=== PATIENT | male | born 1945 | race Caucasian/White ===

== ENCOUNTER 2017-11-21 21:00 | Inpatient (IN) | payer OTHER ==
[~2017-11-21] VITALS: Ht 180.3 cm; Wt 98.5 kg
[~2017-11-21 21:00] MED LIST: ASPIRIN81 M2 PO; ESCITALOPRAM OX10 MG PO; FLOMAX0.4 MG PO; PERCOCET 5/31 TABLET PO; ZOFRAN ODT4 MG PO; [UNRECOGNIZED DRUG - REMARK]
[2017-11-22 21:00] VITALS: BP 123/62
[2017-11-22 23:21] VITALS: BP 123/69
[2017-11-23 03:36] VITALS: BP 119/59
[2017-11-23 06:45] LABS: BASOPHIL (%) 0.2 % (0-1); EOSINOPHIL (%) 0 % (0-5); HEMATOCRIT 36.1 % (38.0-50.0); HEMOGLOBIN 11.4 G/DL (12.5-16.6); IMMATURE GRANULOCYTE (%) 0.5 % (0.0-0.7); LYMPHOCYTE COUNT 0.8 K/uL (1.0-2.8); MCH 26.8 PG (29.0-34.0); MCHC 31.6 G/DL (30.0-36.0); MCV 84.7 FL (86-99); MONOCYTE (%) 5.3 % (3-12); MONOCYTE COUNT 0.7 K/uL (0-0.8); NEUTROPHIL COUNT 11.7 K/uL (1.8-6.4); PLATELET COUNT 222 K/uL (156-360); RBC DIS.WIDTH-CV 15.5 % (11.8-14.6); RBC DIS.WIDTH-SD 47.8 % (39-53); RED BLOOD COUNT 4.26 M/uL (4.00-5.50); WHITE BLOOD COUNT 13.3 K/uL (4.1-10.2)
[2017-11-23 07:09] LABS: ALBUMIN 3.7 G/DL (3.2-4.8); ALKALINE PHOSPHATASE 47 IU/L (3-129); ALT (GPT) 14 IU/L (3-49); AST (GOT) 19 IU/L (2-34); CHLORIDE 105 MEQ/L (99-109); CREATININE 1.3 MG/DL (0.6-1.3); GFR ESTIMATE (CALCULATED) 58 mL/min/ (58.99-99999); GLUCOSE 138 mg/dL (70-99); PHOSPHORUS 2.5 mg/dL (2.5-4.9); POTASSIUM 4.3 MEQ/L (3.7-5.4); SODIUM 140 MEQ/L (136-147); TOTAL BILIRUBIN 0.6 MG/DL (0.0-1.0); UREA NITROGEN (BUN) 13 mg/dL (9-23)
[2017-11-23 07:12] LABS: TOTAL PROTEIN 5.6 G/DL (6.4-8.3)
[2017-11-23 07:29] VITALS: BP 101/55
[2017-11-23 11:03] VITALS: BP 100/58
[2017-11-23 15:48] VITALS: BP 106/57
[2017-11-23 19:46] VITALS: BP 113/61
[2017-11-23 23:33] VITALS: BP 100/57
[2017-11-24 04:45] VITALS: BP 121/69
[2017-11-24 06:10] LABS: HEMATOCRIT 34.3 % (38.0-50.0); HEMOGLOBIN 10.7 G/DL (12.5-16.6); MCH 27.3 PG (29.0-34.0); MCHC 31.2 G/DL (30.0-36.0); MCV 87.5 FL (86-99); PLATELET COUNT 181 K/uL (156-360); RBC DIS.WIDTH-CV 16.1 % (11.8-14.6); RBC DIS.WIDTH-SD 51.9 % (39-53); RED BLOOD COUNT 3.92 M/uL (4.00-5.50); WHITE BLOOD COUNT 9.1 K/uL (4.1-10.2)
[2017-11-24 07:21] VITALS: BP 139/75
[2017-11-24 07:41] LABS: CHLORIDE 107 MEQ/L (99-109); CREATININE 1.4 MG/DL (0.6-1.3); GFR ESTIMATE (CALCULATED) 53 mL/min/ (58.99-99999); POTASSIUM 4.2 MEQ/L (3.7-5.4); SODIUM 141 MEQ/L (136-147); UREA NITROGEN (BUN) 14 mg/dL (9-23)
[2017-11-24 07:47] LABS: GLUCOSE 90 mg/dL (70-99)
[2017-11-24 11:29] VITALS: BP 105/59
[2017-11-24 16:41] VITALS: BP 139/74
[2017-11-24 19:43] VITALS: BP 142/84
[2017-11-24 23:47] VITALS: BP 115/64
[2017-11-25 03:28] VITALS: BP 116/61
[2017-11-25 06:45] LABS: HEMATOCRIT 34.9 % (38.0-50.0); HEMOGLOBIN 10.9 G/DL (12.5-16.6); MCH 27.5 PG (29.0-34.0); MCHC 31.2 G/DL (30.0-36.0); MCV 87.9 FL (86-99); NRBC (%) 0.3 /100 WBC (0-0); PLATELET COUNT 176 K/uL (156-360); RBC DIS.WIDTH-CV 15.9 % (11.8-14.6); RBC DIS.WIDTH-SD 51.5 % (39-53); RED BLOOD COUNT 3.97 M/uL (4.00-5.50); WHITE BLOOD COUNT 7.3 K/uL (4.1-10.2)
[2017-11-25 07:07] LABS: CHLORIDE 105 MEQ/L (99-109); CREATININE 1.1 MG/DL (0.6-1.3); GFR ESTIMATE (CALCULATED) > 59 mL/min/ (58.99-99999); GLUCOSE 94 mg/dL (70-99); POTASSIUM 4.2 MEQ/L (3.7-5.4); SODIUM 139 MEQ/L (136-147); UREA NITROGEN (BUN) 10 mg/dL (9-23)
[2017-11-25 08:23] VITALS: BP 122/78
[2017-11-25 11:38] VITALS: BP 127/68
[2017-11-25 15:44] VITALS: BP 126/76
[2017-11-25 19:22] VITALS: BP 146/76
[2017-11-26] VITALS (7 sets, daily range): BP systolic 114–150; BP diastolic 28–84
[2017-11-27 07:13] LABS: HEMATOCRIT 35.2 % (38.0-50.0); HEMOGLOBIN 11.5 G/DL (12.5-16.6); MCH 27.7 PG (29.0-34.0); MCHC 32.7 G/DL (30.0-36.0); MCV 84.8 FL (86-99); RBC DIS.WIDTH-CV 15.7 % (11.8-14.6); RBC DIS.WIDTH-SD 48.7 % (39-53); RED BLOOD COUNT 4.15 M/uL (4.00-5.50); WHITE BLOOD COUNT 5.3 K/uL (4.1-10.2)
[2017-11-27 07:14] LABS: PLATELET COUNT 239 K/uL (156-360)
[2017-11-27 07:36] LABS: CHLORIDE 106 MEQ/L (99-109); CREATININE 1.2 MG/DL (0.6-1.3); GFR ESTIMATE (CALCULATED) > 59 mL/min/ (58.99-99999); GLUCOSE 86 mg/dL (70-99); MAGNESIUM 1.9 mg/dl (1.3-2.7); SODIUM 141 MEQ/L (136-147); UREA NITROGEN (BUN) 10 mg/dL (9-23)
[2017-11-27 07:41] LABS: PHOSPHORUS 3.8 mg/dL (2.5-4.9)
[2017-11-27 07:45] VITALS: BP 117/70
[2017-11-27] MEDS ORDERED: OXYCODONE-APAP1 EACH PO (10:09)
== END 2017-11-27 13:10 | disposition home or self-care (01) | DRG 330 ==
LOC: ENRESERV 21:00 → 2SOUTH 11-22 09:51 → 5EAST 11-22 09:51 → 2SOUTH 11-22 15:04 → ENRESERV 11-22 17:13 → 5EAST 11-22 19:26 → ENPENDDIS 11-27 → 5EAST 11-27 13:10
PROVIDERS: Physician Assistant Surgical; Surgery
PROC: 0DTF4ZZ Resection of Right Large Intestine, Percutaneous Endoscopic Approach (ICD-10-PCS; principal; 2017-11-22)
DX: C18.4 Malignant neoplasm of transverse colon (principal); K56.699 Other intestinal obstruction unspecified as to partial versus complete obstruction; Z79.82 Long term (current) use of aspirin; Z87.891 Personal history of nicotine dependence
CPT/HCPCS: 80048; 80053; 81003; 82378 GA; 83735; 84100; 85025; 85027; 86850; 86900; 86901; 88305; 88309; 88331; 94799; J0131; J0330; J1100; J1170; J1650; J2001; J2405; J2710; J2795; J3010; J3475; J7120; S0074

== ENCOUNTER 2018-03-11 07:20 | Day surgery (SDC) | payer OTHER ==
[~2018-03-11] VITALS: Ht 182.9 cm; Wt 85.0 kg
[~2018-03-11 07:20] MED LIST changes: +LUMIGAN 0.50 DROP/22 LEFT EYE; +OXYCODONE-APAP1 EACH PO
== END 2018-03-11 09:38 | disposition home or self-care (01) ==
LOC: CATH 07:20
DX: I87.8 Other specified disorders of veins (principal); C18.9 Malignant neoplasm of colon, unspecified; Z79.82 Long term (current) use of aspirin; Z82.49 Family history of ischemic heart disease and other diseases of the circulatory system
CPT/HCPCS: C1751; C1894; J0690; J1200; J1644; J2250; J3010; S0020